=== PATIENT | male | born 2000 | race Caucasian/White ===

== ENCOUNTER 2025-01-04 05:17 | Day surgery (SDC) | payer BC ==
[2024-12-29 16:29] VITALS: BMI 32.1
[2025-01-04] MEDS ORDERED: Iopamidol 0 ML ONE (07:13)
[2025-01-04] MEDS ORDERED: fentaNYL PF 100 MCG/2 ML SYRINGE ONE ×2 (07:14→07:58)
[2025-01-04] MEDS ORDERED: PROPOFOL 40 ML ONE (07:14)
[2025-01-04] MEDS ORDERED: Rocuronium Bromide 10 MG/ML (10ML VIAL) ONE (07:14)
[2025-01-04] MEDS ORDERED: Ondansetron PF 4 MG/2 ML Vial ONE ×2 (07:14→09:50)
[2025-01-04] MEDS ORDERED: cefTRIAXone (ROCEPHIN) 1 GM VIAL ONE (07:26)
[2025-01-04] MEDS ORDERED: Albuterol HFA (OR) 200 PUFF INH ONE (07:52)
[2025-01-04] MEDS ORDERED: Ketorolac Tromethamine 30 MG (1 mL) VIAL ONE (08:42)
[2025-01-04] MEDS ORDERED: Oxybutynin 5 MG TAB ONE (09:31)
== END 2025-01-04 10:53 | disposition home or self-care (01) ==
LOC: SDC 05:17
PROVIDERS: ATTEND Urology
PROC: 0T788DZ Dilation of Bilateral Ureters with Intraluminal Device, Via Natural or Artificial Opening Endoscopic (ICD-10-PCS; principal; 2025-01-04)
PROC: 0TC18ZZ Extirpation of Matter from Left Kidney, Via Natural or Artificial Opening Endoscopic (ICD-10-PCS; principal; 2025-01-04)
PROC: 0TC08ZZ Extirpation of Matter from Right Kidney, Via Natural or Artificial Opening Endoscopic (ICD-10-PCS; principal; 2025-01-04)
DX: N20.0 Calculus of kidney (principal)
CPT/HCPCS: 82365; 88300; C1758; C1769; C2617; J0696; J1100; J1885; J2250; J2272; J2405; J2550; J2704; J3010; Q9967